=== PATIENT | female | born 1985 | race Caucasian/White ===

== ENCOUNTER 2018-02-25 15:04 | Emergency (ER) | payer BC, SELFPAY ==
[2018-02-25 15:10] VITALS: BP 124/93; PULSE 114; RESP 16; TEMP 36.8; O2SAT 100; BMI 23.8
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
--- NOTE | 2018-02-25 15:18 | EKG12_ITS ---
Test Reason : Blood Pressure : / mmHG Vent. Rate : 094 BPM Atrial Rate : 094 BPM P-R Int : 122 ms QRS Dur : 092 ms QT Int : 354 ms P-R-T Axes : 061 016 046 degrees QTc Int : 442 ms Normal sinus rhythm Incomplete right bundle branch block Borderline ECG Confirmed by NARA YAP ([id number]), assignment desk editor PRIYANK ASHBY ([id number]) on 03/01/2018 2:25:28 PM Referred By: LATESHA Confirmed By:NARA YAP
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
--- NOTE | 2018-02-25 15:28 | NURSING ---
NO OLD EKGS
[2018-02-25] MEDS: Morphine 4 MG/ML Syringe IV (15:35)
[2018-02-25] MEDS: Ondansetron 4 MG/2 ML Vial IV (15:35)
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
[2018-02-25 17:20] VITALS: BP 113/85; PULSE 95; RESP 14; O2SAT 98
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
[2018-02-25 18:03] VITALS: BP 108/64; PULSE 72; RESP 15; O2SAT 98
== END 2018-02-25 18:03 | disposition home or self-care (01) ==
PROVIDERS: Emergency Provider Emergency Medicine; Family Provider Family Medicine; PCP Family Medicine
DX: S16.1XXA Strain of muscle, fascia and tendon at neck level, initial encounter (principal); S39.012A Strain of muscle, fascia and tendon of lower back, initial encounter; S20.219A Contusion of unspecified front wall of thorax, initial encounter; S60.417A Abrasion of left little finger, initial encounter; R91.1 Solitary pulmonary nodule; R42 Dizziness and giddiness; V89.2XXA Person injured in unspecified motor-vehicle accident, traffic, initial encounter; Y93.9 Activity, unspecified; Y92.9 Unspecified place or not applicable
CPT/HCPCS: 70450; 71250; 72100; 72125; 73030; 73130; 93005; 96374; 96375; 99285; A4216; J2405

== ENCOUNTER → 2019-10-05 | Outpatient (CLI) | payer BC, SELFPAY ==
[2019-10-11 04:59] LABS: HPV Reflexed? NOT INDICATED
== END | disposition home or self-care (01) ==
LOC: LABSPEC 15:20
PROVIDERS: PCP Family Medicine; Visit Provider Obstetrics & Gynecology
DX: Z12.4 Encounter for screening for malignant neoplasm of cervix (principal)
CPT/HCPCS: 88175; G0145

== ENCOUNTER 2020-06-14 10:42 | Outpatient (RCR) | payer BC, SELFPAY | END 2020-06-14 23:59 | LOC: IMMUN 10:42 | PROVIDERS: PCP Family Medicine; Visit Provider Family Medicine | DX: Z23 Encounter for immunization (principal) | CPT/HCPCS: 0011A; 0012A ==